=== PATIENT | male | born 1990 | race Caucasian/White ===

== ENCOUNTER 2018-01-28 12:49 | Emergency (ER) | payer BC ==
[2018-01-28 17:39] LABS: Urine Appearance Clear; Urine Blood Negative (Negative); Urine Color Colorless; Urine Ketones Trace (Negative); Urine Protein Negative (Negative); Urine Specific Gravity 1.002 (1.010-1.030); Urine Urobilinogen Negative (Negative)
[2018-01-28 18:55] LABS: ABS Basophils 0 10^3/ul (0-0.2); ABS Eosinophils 0 10^3/ul (0-0.6); ABS Lymphocytes 1.5 10^3/ul (1.0-4.8); ABS Monocytes 0.5 10^3/ul (0-0.8); ABS Neutrophils 4.9 10^3/ul (1.5-7.7); ABS Nucleated RBC 0 10^3/ul; Eosinophil % 0.7 % (0-6); Hematocrit 44 % (42-52); Hemoglobin 14.8 g/dl (14.0-18.0); Lymphocyte % 21.8 % (25-47); Mean Corpuscular HGB Conc 34 g/dl (31-36); Mean Corpuscular Hemoglobin 29 pg (27-31); Mean Corpuscular Volume 86 fL (80-94); Mean Platelet Volume 9 um3 (7.4-10.4); Nucleated Red Blood Cells % 0.1; Platelet Count 174 10^3/ul (150-450); Red Cell Distribution Width 13 % (10.5-15)
[2018-01-28 19:08] LABS: EGFR Non-African American 135.2 (>60)
[2018-01-28] MEDS ORDERED: Potassium Chlor TAB* 20 MEQ TAB.ER PO ONE (19:43)
[2018-01-28 20:12] VITALS: BP 126/85
--- NOTE | 2018-02-05 23:46 | ED ---
Carlos Mendez Stephanie, scribed for Andres Bang MD on 01/28/18 at 1606 . Palpitations / Dysrhythmia - HPI Summary HPI Summary: The pt is a 27 y/o M presenting to the ED with c/o palpitations since 01/21/18. Symptoms include irregular heartbeats, SOB, chest tightness and throat tightness. The pt reports that his symptoms worsen after eating. He denies weight loss, depression and SI. The pt also states he feels he has a "salt sensitivity". - History of Current Complaint Chief Complaint: EDDysrhythmPalp Time Seen by Provider: 01/28/18 12:58 Hx Obtained From: Patient Onset/Duration: Gradual Onset, Lasting Weeks - 1, Still Present Character: Irregular, Skipped Beats Aggravating: Other - food Alleviating: Nothing Associated Signs & Symptoms: Shortness of Breath - Allergy/Home Medications Allergies/Adverse Reactions: Allergies Allergy/AdvReac Type Severity Reaction Status Date / Time hydrocortisone Allergy Anxiety Verified 01/28/18 18:56 PMH/Surg Hx/FS Hx/Imm Hx Endocrine/Hematology History: Denies: Hx Anticoagulant Therapy, Hx Diabetes Cardiovascular History: Denies: Hx Hypertension EENT History: Denies: Hx Deafness Psychiatric History: Reports: Hx Anxiety - Surgical History Surgery Procedure, Year, and Place: NONE Infectious Disease History: No Infectious Disease History: Denies: Traveled Outside the [place] in Last 30 Days - Family History Known Family History: Negative: Cardiac Disease - Social History Occupation: Works From/At Home Lives: Alone Alcohol Use: Rare Substance Use Type: Reports: None Smoking Status (MU): Never Smoked Tobacco Review of Systems Positive: Other - Negative: weight loss. Negative: Fever Positive: Other - throat tightness Positive: Palpitations, Chest Pain - tightness, Other - irregular heartbeats Positive: Shortness Of Breath Positive: Other - Negative: SI. Negative: Depressed All Other Systems Reviewed And Are Negative: Yes Physical Exam - Summary Physical Exam Summary: Appearance: Well-appearing, Well-nourished Skin: Warm, Dry, No rash Eyes: Normal, PERRL, EOMI, sclera anicteric ENT: Normal Neck: Supple, nontender Respiratory: Clear to auscultation Cardiovascular: S1, S2, no murmur, no rub, no gallop Abdomen: Soft, nontender, no organomegaly Bowel sounds: Present Musculoskeletal: Normal, Strength/ROM Intact, no edema, pulses symmetrical Neurological: Normal, A&Ox3, cranial nerves II-XII WNL, follows commands, gait not tested, sensation intact to pin and light touch Psychiatric: affect normal, behavior appropriate, dressed appropriately, judgment intact Triage Information Reviewed: Yes Vital Signs On Initial Exam: Initial Vitals Temp Pulse Resp BP Pulse Ox 97.8 F 85 18 140/87 100 01/28/18 12:51 01/28/18 12:51 01/28/18 12:51 01/28/18 12:51 01/28/18 12:51 Vital Signs Reviewed: Yes Diagnostics - Vital Signs Vital Signs Temp Pulse Resp BP Pulse Ox 01/28/18 15:09 99.4 F 75 16 127/83 100 01/28/18 12:51 97.8 F 85 18 140/87 100 - Laboratory Result Diagrams: 01/28/18 16:24 01/28/18 16:24 Lab Statement: Any lab studies that have been ordered have been reviewed, and results considered in the medical decision making process. - EKG 16:31 Cardiac Rate: NL EKG Rhythm: Sinus Rhythm - 81 BPM, doubt acute LA ST Segment: Non-Specific - ST elevation inferior leads EKG Interpretation: J point elevation present in anterior chest leads, question pericarditis? Course/Dx - Course Course Of Treatment: No arrhythmia. The pt is feeling well without chest discomfort. - Diagnoses Provider Diagnoses: Palpitations, Shortened VT interval, Anxiety Discharge - Discharge Plan Condition: Stable Disposition: HOME Patient Education Materials: Supraventricular Tachycardia (ED), Heart Palpitations in Adolescents (ED) Referrals: No Primary Care Phys,NOPCP [Primary Care Provider] - Momo Echevarria MD [Medical Doctor] - 1 Week The documentation as recorded by the Carlos william Stephanie accurately reflects the service I personally performed and the decisions made by , Andres Bang MD.
== END 2018-01-28 19:58 | disposition home or self-care (01) ==
LOC: ED 12:49
DX: R00.2 Palpitations (principal); I45.6 Pre-excitation syndrome; F41.9 Anxiety disorder, unspecified; Z88.8 Allergy status to other drugs, medicaments and biological substances
CPT/HCPCS: 36415; 80053; 81003; 83735; 84443; 84484; 85025; 93005; 99283; A9270-GY